=== PATIENT | male | born 1980 | race African-American/Black ===

== ENCOUNTER 2025-01-25 21:59 | Emergency (ER) | payer MEDICAID ==
[~2025-01-25] VITALS: Ht 172.7 cm; Wt 73.0 kg
[2025-01-25 22:07] VITALS: BP 129/87; PULSE 74; RESP 18; TEMP 37.6; O2SAT 98
== END 2025-01-25 23:30 | disposition home or self-care (01) ==
LOC: ER 22:44
DX: B34.9 Viral infection, unspecified (principal); E11.9 Type 2 diabetes mellitus without complications
CPT/HCPCS: 99283